=== PATIENT | female | born 1940 | race Caucasian/White ===

== ENCOUNTER 2018-06-02 11:46 | Observation (INO) | payer MEDICARE ==
[~2018-06-02] VITALS: Ht 175.3 cm; Wt 78.2 kg
[~2018-06-02 11:46] MED LIST: GABA300C PO; PRED20TA PO
[2018-06-02] MEDS ORDERED: LOSA50TA14 PO (12:56)
[2018-06-02] MEDS ORDERED: ATOR-2 PO (12:56)
--- NOTE | 2018-06-02 12:56 | NUR ---
pt to ed for "electrical shock" pains intermittently since september. pt states extensive workup wtih no results. connected to monitors. vss. pa to bedside for assessment. awaiting orders.
[2018-06-02] MEDS ORDERED: METHOCARBAMOL 750 MG TABLET ONE ×2 (13:08)
[2018-06-02] MEDS ORDERED: KETOROLAC 30 MG/1 ML ONE (13:08)
[2018-06-02] MEDS ORDERED: KETOROLAC 30 MG/1 ML IM ONE (13:30)
[2018-06-02] MEDS ORDERED: METHOCARBAMOL 750 MG TABLET PO ONE (13:30)
[2018-06-02 13:34] LABS: BASOPHILS # (AUTO) 0.04 x10^3/uL (0-0.1); BASOPHILS % (AUTO) 1 % (0-1); EOSINOPHILS # (AUTO) 0.13 x10^3/uL (0-0.4); EOSINOPHILS % (AUTO) 2 % (1-7); LYMPHOCYTES # (AUTO) 2.27 x10^3/uL (1-3.4); LYMPHOCYTES % (AUTO) 31 % (22-44); MD NO; MEAN CORPUSCULAR HEMOGLOBIN 29.7 pg (27.0-34.8); MEAN CORPUSCULAR HGB CONC 32.7 g/dL (32.4-35.8); MEAN CORPUSCULAR VOLUME 90.8 fL (80-100); MEAN PLATELET VOLUME 8.3 fL (7.4-10.4); MONOCYTES # (AUTO) 0.43 x10^3/uL (0.2-0.8); MONOCYTES % (AUTO) 6 % (2-9); NEUTROPHILS # (AUTO) 4.36 x10^3/uL (1.8-6.8); NEUTROPHILS % (AUTO) 60 % (42-75); PLATELET COUNT 284 x10^3/uL (130-400); RED BLOOD COUNT 4.66 x10^6/uL (3.82-5.3); RED CELL DISTRIBUTION WIDTH 13.7 % (9.6-15.2)
[2018-06-02 13:40] LABS: ALBUMIN 4.5 g/dL (3.4-5.0); ANION GAP 5 mmol/L (5-15); CALCIUM 9.3 mg/dL (8.5-10.1); CHLORIDE 110 mmol/L (98-107); CREATININE 0.92 mg/dL (0.55-1.02); HIGH-SENSITIVITY CRP 0.11 mg/dL (0.02-0.30)
--- NOTE | 2018-06-02 14:02 | NUR ---
pt resting in room. vss. no needs at this time.
[2018-06-02] MEDS: ENOXAPARIN 40 MG/0.4 ML SQ SCH (18:00)
[2018-06-02 19:49] VITALS: BP 118/68
[2018-06-02] MEDS: LOSARTAN 50MG TABLET PO SCH (21:48)
[2018-06-02] MEDS: ATORVASTATIN 20 MG TABLET PO SCH (21:48)
[2018-06-03 02:23] VITALS: BP 120/67
[2018-06-03] MEDS ORDERED: DIAZEPAM 2 MG TABLET PO ONE (05:00)
[2018-06-03 07:15] VITALS: BP 139/72
[2018-06-03] MEDS ORDERED: LOSARTAN 50MG TABLET PO SCH ×2 (09:00→21:00)
[2018-06-03] MEDS ORDERED: MORPHINE SULFATE 4 MG/ML, 1ML IVPush PRN (11:00)
[2018-06-03 12:40] VITALS: BP 152/72
[2018-06-03] MEDS: ENOXAPARIN 40 MG/0.4 ML SQ SCH (16:56)
[2018-06-03] MEDS: ACETAMINOPHEN 325 MG TABLET PO PRN ×2 (17:02→22:06)
[2018-06-03 19:24] VITALS: BP 117/72
[2018-06-03] MEDS: ATORVASTATIN 20 MG TABLET PO SCH (22:06)
[2018-06-03] MEDS: LOSARTAN 50MG TABLET PO SCH (22:06)
[2018-06-04 03:01] VITALS: BP 122/70
[2018-06-04 06:57] VITALS: BP 110/72
[2018-06-04] MEDS ORDERED: LIDODERM 5% PATCH TD SCH (10:00)
[2018-06-04] MEDS ORDERED: GABAPENTIN 100 MG CAPSULE PO SCH (11:00)
[2018-06-04] MEDS ORDERED: GABA-826 PO (11:12)
[2018-06-04] MEDS ORDERED: ACET325T14 PO (11:12)
[2018-06-04 12:18] VITALS: BP 107/70
== END 2018-06-04 14:03 | disposition home or self-care (01) ==
LOC: ED 13:06 → EDIP 13:58 → 3NE 14:36 → DCLOUNGE 06-04 13:50
PROVIDERS: ADMIT Hospitalist; ATTEND Hospitalist
DX: M54.16 Radiculopathy, lumbar region (principal); M54.5 Low back pain; E78.5 Hyperlipidemia, unspecified; G89.29 Other chronic pain; M50.321 Other cervical disc degeneration at C4-C5 level; I10 Essential (primary) hypertension; Z80.8 Family history of malignant neoplasm of other organs or systems; Z82.0 Family history of epilepsy and other diseases of the nervous system; Z90.710 Acquired absence of both cervix and uterus
CPT/HCPCS: 36415; 72141; 72146; 72148; 80048; 82040; 85025; 85651; 86141; 95819; 96372; 99284; G0378; J1650; J1885